=== PATIENT | female | born 1935 | race Caucasian/White ===

== ENCOUNTER 2016-05-11 09:15 | Emergency (ER) | payer MEDICARE ==
[~2016-05-11] VITALS: Ht 167.6 cm; Wt 61.2 kg
[~2016-05-11 09:15] MED LIST: ADVIL200 M1 PO; AMBIEN10 M1 PO; AMBIEN5 MG; ASPIR LOW81 MG PO; ATIVAN; ATIVAN2 MG PO; BENADRYL ALLERG25 M4 PO; CATAPRES0.1 MG PO; CHOLESTEROL MED; CHOLESTEROL1 POW; DOXYCYCLINE HY100 M5 PO; EXCEDRIN EXTRA1 EACH PO; HYDROCODONE BIT1 T11 PO; LISINOPRIL20 MG PO; LISINOPRIL5 MG PO; MEDROL DOSEPAK4 MG PO; NORVASC10 MG PO; OMNICEF300 MG PO; PERCOCET 325 MG1 TA2 PO; PERCOCET 325 MG1 TA6 PO; PLAVIX75 M1 PO; PLAVIX75 MG PO; PRAVASTATIN SOD20 MG PO; PREDNISONE10 MG PO; PREDNISONE20 M1 PO; PROVENTIL0.09 MG/A1 INH; REMERON15 MG PO; TENORMIN50 MG PO; TYLENOL W/CODEI1 TA2 PO; ZITHROMAX Z PA250 MG PO; ZOCOR10 MG PO; ZOCOR20 MG PO; ZOFRAN4 MG PO
[2016-05-11 09:59] LABS: BASO # 0.1 10*3/uL (0.0-0.1); BASO % 0.4 % (0.0-1.0); EOS % 0.2 % (1.0-4.0); HEMATOCRIT 35.7 % (37.0-47.0); HEMOGLOBIN 11.4 g/dl (12.0-16.0); IG # 0.1 10*3/uL (0.0-0.1); LYMPH # 1.8 10*3/uL (1.3-4.4); LYMPH % 8.6 % (27.0-41.0); MEAN CELL VOLUME 96.2 fl (81.0-99.0); MEAN CORPUSCULAR HGB 30.7 pg (27.0-31.0); MEAN CORPUSCULAR HGB CONC 31.9 g/dl (33.0-37.0); MEAN PLATELET VOLUME 11.4 fl (9.6-12.3); MONO # 1.4 10*3/uL (0.1-1.0); MONO % 6.7 % (3.0-9.0); NEUT # 17.2 10*3/uL (2.3-7.9); NEUT % 83.4 % (47.0-73.0); PLATELET COUNT AUTOMATED 273 10*3/uL (130-400); RED BLOOD COUNT 3.71 10*6/uL (4.10-5.10); RED CELL DISTRI WIDTH 14.1 % (0-14.5); WHITE BLOOD COUNT 20.6 10*3/uL (4.8-10.8)
[2016-05-11 10:07] LABS: INTERNATIONAL NORM RATIO 1.1 (2.0-3.5); PROTHROMBIN TIME 11.3 SECONDS (9.0-12.4)
[2016-05-11] MEDS ORDERED: OMEPRAZOLE MAGN20 MG PO (10:15)
[2016-05-11] MEDS ORDERED: DULOXETINE HCL30 MG PO (10:16)
[2016-05-11] MEDS ORDERED: EFFER-K25 MEQ PO (10:16)
[2016-05-11 10:21] LABS: BILIRUBIN NEGATIVE (NEGATIVE); BLOOD NEGATIVE (NEGATIVE); CLARITY CLOUDY (CLEAR); COLOR YELLOW (YELLOW); GLUCOSE NEGATIVE (NEGATIVE); KETONE NEGATIVE (NEGATIVE); LEUKO ESTERASE NEGATIVE (NEGATIVE); NITRITE NEGATIVE (NEGATIVE); PROTEIN NEGATIVE (NEGATIVE); UROBILINOGEN 0.2 E.U./dl (0.2-1.0)
[2016-05-11 10:27] LABS: ALBUMIN 3.6 gm/dl (3.1-4.5); BILIRUBIN, TOTAL 0.4 mg/dl (0.2-1.0); MAGNESIUM 2.6 mg/dL (1.5-2.1); POTASSIUM 3.5 mmol/L (3.5-5.1); TOTAL PROTEIN 7.1 gm/dL (6.4-8.2)
[2016-05-11 10:28] LABS: TROPONIN I 0.016 ng/ml (<0.045)
[2016-05-11 10:37] LABS: EPITHELIAL CELLS 16-20
[2016-05-11 10:38] LABS: BACTERIA 1+; URINE REFLEX COMMENT NO (NO); WBC 0-2 wbc/hpf (0-5)
[2016-05-11 11:03] LABS: ABG CO2 CONTENT 16.8 mmol/L (23-27); ABG HCO3 15.9 mmol/l (22-26); ARTERIAL BLOOD GAS PH 7.322 (7.35-7.45); ARTERIAL BLOOD GAS PO2 80.2 mmHg (80-90)
[2016-05-11 11:04] LABS: ABG BASE EXCESS -8.9 mmol/L (-2.0-2.0)
[2016-05-11 11:55] LABS: LA>2 REFLEX 2 HR DRAW NOW
[2016-05-11 12:12] LABS: LA>2 RFLX FOLLOW UP AT 2 HRS 2.5 mmol/L (0.4-2.0)
[2016-05-11 14:07] LABS: LA>2 REFLEX 4 HR DRAW NOW
== END 2016-05-11 14:20 | disposition short-term general hospital (02) ==
LOC: ED 09:15
PROVIDERS: Registered Nurse
DX: A41.9 Sepsis, unspecified organism (principal); N17.9 Acute kidney failure, unspecified; R09.02 Hypoxemia; R04.89 Hemorrhage from other sites in respiratory passages; K66.1 Hemoperitoneum; F17.200 Nicotine dependence, unspecified, uncomplicated; Z90.710 Acquired absence of both cervix and uterus; Z79.82 Long term (current) use of aspirin; Z88.6 Allergy status to analgesic agent; Z91.041 Radiographic dye allergy status

== ENCOUNTER → 2016-07-09 | Outpatient (CLI) | payer MEDICARE ==
[~2016-07-09] MED LIST changes: +DULOXETINE HCL30 MG PO; +EFFER-K25 MEQ PO; +OMEPRAZOLE MAGN20 MG PO
== END | disposition home or self-care (01) ==
LOC: MRI 07-07 14:00
DX: I65.23 Occlusion and stenosis of bilateral carotid arteries (principal); R93.0 Abnormal findings on diagnostic imaging of skull and head, not elsewhere classified; R29.6 Repeated falls; R55 Syncope and collapse; R51 Headache; R26.9 Unspecified abnormalities of gait and mobility

== ENCOUNTER → 2016-07-22 | Outpatient (CLI) | payer MEDICARE ==
[~2016-07-22] MED LIST changes: +PROTONIX40 MG PO
== END | disposition home or self-care (01) ==
LOC: CP 10:00
DX: R55 Syncope and collapse (principal); R51 Headache; R26.9 Unspecified abnormalities of gait and mobility; R29.6 Repeated falls

== ENCOUNTER 2016-07-24 21:23 | Emergency (ER) | payer MEDICARE ==
[~2016-07-24] VITALS: Ht 162.5 cm; Wt 54.4 kg
[~2016-07-24 21:23] MED LIST changes: -PROTONIX40 MG PO
[2016-07-24] MEDS ORDERED: PROTONIX40 MG PO (21:52)
[2016-07-24 22:36] LABS: BASO # 0.1 10*3/uL (0.0-0.1); BASO % 1.5 % (0.0-1.0); EOS # 0.2 10*3/uL (0.0-0.4); EOS % 3.3 % (1.0-4.0); HEMATOCRIT 42.4 % (37.0-47.0); HEMOGLOBIN 14.1 g/dl (12.0-16.0); LYMPH # 2.2 10*3/uL (1.3-4.4); LYMPH % 29.5 % (27.0-41.0); MEAN CELL VOLUME 95.7 fl (81.0-99.0); MEAN CORPUSCULAR HGB 31.8 pg (27.0-31.0); MEAN CORPUSCULAR HGB CONC 33.3 g/dl (33.0-37.0); MEAN PLATELET VOLUME 11.1 fl (9.6-12.3); MONO # 0.8 10*3/uL (0.1-1.0); MONO % 10.2 % (3.0-9.0); NEUT % 55.2 % (47.0-73.0); PLATELET COUNT AUTOMATED 271 10*3/uL (130-400); RED BLOOD COUNT 4.43 10*6/uL (4.10-5.10); RED CELL DISTRI WIDTH 16.1 % (0-14.5); WHITE BLOOD COUNT 7.3 10*3/uL (4.8-10.8)
[2016-07-24 22:51] LABS: ALBUMIN 3.6 gm/dl (3.1-4.5); BILIRUBIN, TOTAL 0.2 mg/dl (0.2-1.0); TOTAL PROTEIN 7.2 gm/dL (6.4-8.2)
== END 2016-07-24 23:49 | disposition home or self-care (01) ==
LOC: ED 21:23
PROVIDERS: Emergency Medicine
DX: R42 Dizziness and giddiness (principal); F17.200 Nicotine dependence, unspecified, uncomplicated; Z88.8 Allergy status to other drugs, medicaments and biological substances; Z91.041 Radiographic dye allergy status; Z79.899 Other long term (current) drug therapy

== ENCOUNTER → 2016-07-24 | Outpatient (CLI) | payer MEDICARE | END | disposition home or self-care (01) | LOC: CARD 10:00 | DX: J44.9 Chronic obstructive pulmonary disease, unspecified (principal); N28.1 Cyst of kidney, acquired; K66.1 Hemoperitoneum; N26.1 Atrophy of kidney (terminal); I70.0 Atherosclerosis of aorta; Z87.891 Personal history of nicotine dependence; Z95.5 Presence of coronary angioplasty implant and graft ==

== ENCOUNTER 2016-12-19 10:33 | Inpatient (IN) | payer MEDICARE ==
[~2016-12-19] VITALS: Ht 163 cm; Wt 47.0 kg
--- NOTE | ~2016-12-19 | PR ---
[place], [place] PROGRESS NOTE NAME: LEA GRANT UNIT #: [id number] ROOM: 426 DOCTOR: TROY MOBLEY MD BIRTHDATE: [birth year] DOS: 12/21/2016 SUBJECTIVE: The patient has pain at the left clavicular fracture site, waiting for transfer to detention facility. PHYSICAL EXAMINATION: GENERAL APPEARANCE: The patient is alert and oriented x 3, in no visible distress. VITAL SIGNS: Blood pressure 150/67, heart rate of 73 beats per minute, breathing 20 times per minute, temperature 98 degrees Fahrenheit. HEENT AND NECK: Exam within normal limits. CARDIOVASCULAR SYSTEM: Heart rate is regular in rate and rhythm. S1 and S2 normally audible. LUNGS: Clear to auscultation. ABDOMEN: Soft, nontender. No obvious organomegaly. Bowel sounds are present. EXTREMITIES: Without significant cyanosis or edema. MUSCULOSKELETAL: Tenderness at the left shoulder. IMPRESSION: 1. The patient with resistant urinary tract infection with E. coli, to be treated with ceftriaxone. 2. Benign essential hypertension with elevated blood pressures. I will increase the amlodipine to 10 mg daily. 3. Chronic constipation, treated and controlled with sennoside. 4. Mixed hyperlipidemia, treated and controlled with Lipitor. TROY MOBLEY MD CM:PNTRANS [id number] TROY MOBLEY MD 12/24/16 0836 interface
--- NOTE | ~2016-12-19 | EKG ---
[place], [place] ELECTROCARDIOGRAM REPORT NAME: LEA GRANT UNIT #: [id number] ROOM: 426 DOCTOR: FARRUKH ROJO,TATE BIRTHDATE: [birth year] DOS: 12/19/2016 TIME: 11:27 a.m. IMPRESSION: 1. Sinus rhythm. 2. First degree AV block. 3. LV hypertrophy. 4. 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 5. Possible old inferior infarction. TATE CHADWICK MD CM:EKGRPT:ELECTROCARDIOGRAM REPORT [id number] TATE CHADWICK MD
--- NOTE | ~2016-12-19 | DS ---
[place], [place] DISCHARGE SUMMARY NAME: LEA GRANT UNIT #: [id number] ROOM: 426 DOCTOR: TROY MOBLEY MD BIRTHDATE: [birth year] DOS: 12/23/2016 DISCHARGE DIAGNOSES: 1. 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 2. Distal left clavicular fracture with pain, evaluated by Dr. Sr. 3. Chronic constipation, treated and controlled. 4. Benign essential hypertension, blood pressure being monitored and treated. 5. Pre-diabetic. 6. Moderate protein calorie malnutrition. 7. Nicotine smoke dependence. 8. Adult failure to thrive. HOSPITAL COURSE: The patient refuses to use walker and has recurrent falls and injuries at home, this time broke her left clavicle. She had a distal left clavicular fracture and earlier on she had left radius Colles fracture. The patient was started on physical therapy and was seen by orthopedic surgeon, Dr. Sr. The patient was insisting on going home, but somehow I was able to convince her to go to a residential facility for rehab because she is a very high risk for falls, especially now after left clavicular fracture. The patient is to follow up with Dr. Sr as an outpatient and Dr. Sr will also recommend physical therapy. Depressed fracture of the distal one third of the left clavicle. Benign essential hypertension, with blood pressures better controlled now with adjustment of her treatment. Moderate protein calorie malnutrition and adult failure to thrive. Pre-diabetic, blood sugars were monitored and are reasonably controlled. LABORATORY DATA: X-ray of the clavicle as mentioned above. Urinary tract infection with E. coli, treated with IV Rocephin, normal serum electrolytes. Hemoglobin 11.2, otherwise normal CBC, platelets were normal. CT scan of the head did not show any acute abnormality ____ CT of the cervical spine. DISCHARGE MANAGEMENT: MiraLax 17 grams b.i.d., amlodipine 10 mg a day, atorvastatin 10 mg a day, sennoside b.i.d. 8.6 mg, Plavix 75 mg a day, aspirin 81 mg a day, omeprazole 20 mg a day, Singulair 10 mg a day, Colace 200 mg at bedtime, lisinopril 10 mg a day, IV ceftriaxone to complete 1 week of treatment, then to discontinue. [place], [place] DISCHARGE SUMMARY NAME: LEA GRANT UNIT #: [id number] ROOM: 426 DOCTOR: LEANDRA ROJO,TROY Buenrostro BIRTHDATE: [birth year] TROY MOBLEY MD CM:DISCHARG [phone] TROY MOBLEY MD 12/23/16 1213 interface
--- NOTE | ~2016-12-19 | PR ---
[place], [place] PROGRESS NOTE NAME: LEA GRANT UNIT #: [id number] ROOM: 426 DOCTOR: TROY MOBLEY MD BIRTHDATE: [birth year] DOS: 12/20/2016 SUBJECTIVE: The patient is feeling much better, some pain where she has left ventricular fracture. OBJECTIVE: VITAL SIGNS: Blood pressure 114/57, heart rate 81 beats per minute, breathing 20 times per minute, temperature 98.2 degrees Fahrenheit. GENERAL APPEARANCE: The patient is alert and oriented x 3, in no visible distress. HEENT AND NECK: Exam within normal limits. CARDIOVASCULAR SYSTEM: Heart rate is regular in rate and rhythm. S1 and S2 normally audible. LUNGS: Clear to auscultation. ABDOMEN: Soft, nontender. No obvious organomegaly. Bowel sounds are present. EXTREMITIES: Without significant cyanosis or edema. IMPRESSION: 1. The patient with left distal clavicular fracture from a fall with significant pain which are reasonably controlled, now to be seen by Dr. Sr, the orthopedic surgeon tomorrow. 2. Urinary tract infection with urine cultures. Final results are still pending. The patient is growing heavy gram-negative bacilli. No leukocytosis. I will treat her with Bactrim-DS. 3. Nicotine smoke dependence. The patient encouraged to stop smoking cigarettes. 4. Recurrent falls and adult failure to thrive. The patient to work with physical therapy. 5. Moderate protein-calorie malnutrition. The patient working with dietary. TROY MOBLEY MD CM:PNTRANS [phone] TROY MOBLEY MD 12/21/16 0108 interface
--- NOTE | ~2016-12-19 | PR ---
[place], [place] PROGRESS NOTE NAME: LEA GRANT UNIT #: [id number] ROOM: 426 DOCTOR: TROY MOBLEY MD BIRTHDATE: [birth year] DOS: 12/22/2016 SUBJECTIVE: The patient refused to go to [facility] when she was approached by socially responsible investment adviser. OBJECTIVE: VITAL SIGNS: Blood pressure 140/60, heart rate of 76 beats per minute, breathing 18 times per minute, temperature 98 degrees Fahrenheit. GENERAL APPEARANCE: The patient is alert and oriented x 3, in no visible distress. HEENT AND NECK: Exam within normal limits. CARDIOVASCULAR SYSTEM: Heart rate is regular in rate and rhythm. S1 and S2 normally audible. LUNGS: Clear to auscultation. ABDOMEN: Soft, nontender. No obvious organomegaly. Bowel sounds are present. EXTREMITIES: Without significant cyanosis or edema. IMPRESSION: Distal left clavicular fracture with pain, improving with treatment. The patient requires further physical therapy to prevent falls at home and finally she is agreeing to go to [facility] and socially responsible investment adviser have been informed again. 1. Adult failure to thrive and recurrent falls and injuries. 2. Benign essential hypertension with better controlled blood pressures with treatment now. 3. Chronic constipation, treated and controlled, but with the pain treatment, she requires a little more laxative, so she is being given MiraLax. TROY MOBLEY MD CM:PNTRANS [phone] TROY MOBLEY MD 12/22/166 interface
--- NOTE | ~2016-12-19 | WRIGHTHP ---
[place], [place] PATIENT HISTORY AND PHYSICAL EXAM [id number] UN[facility] #: [id number] ROOM: 426 DOCTOR: TROY MOBLEY MD BIRTHDATE: [birth year] DOS: 12/19/2016 HISTORY OF PRESENT ILLNESS: The patient is an 81-year-old female with a past medical history of; 1. Nicotine smoke dependence, adult failure to thrive, and recurrent falls. The patient refuses to use a walker, previous left radius Colles fracture. 2. Benign essential hypertension. 3. Moderate protein-calorie malnutrition. 4. Prediabetic. The patient presented to the Emergency Department at [facility] after she fell while she was trying to turn and lost her balance. The patient was found to have depressed fracture of the lateral third of the left clavicle and she had severe pain. The patient was recommended for admission and further management because she is already unable to ambulate well by herself and with added fracture and pain and more disability, she will not be able to ambulate at home. The patient was given pain medication in the ER and she is in a deep sleep. The patient normally lives at home with the help of her daughter and refuses to use a wheeled walker and has recurrent falls. No recent chest pain, shortness of breath. No GI or urinary symptoms. REVIEW OF SYSTEMS: GASTROINTESTINAL: No nausea, vomiting, diarrhea, constipation. LUNGS: No increasing shortness of breath or wheezing. CARDIOVASCULAR: No chest pains or palpitations. ALLERGIES: Known allergies to IODINE, TAPE, and HYDROCODONE. SOCIAL HISTORY: Denies any alcohol or drug abuse. The patient continues to smoke cigarettes. FAMILY HISTORY: Noncontributory. PHYSICAL EXAMINATION: GENERAL: The patient is deeply sedated with pain medications, difficult to arouse, but before that she was alert and oriented. Generalized weakness and tenderness at the distal lateral third of the left clavicle. HEENT AND NECK: Extraocular movements are intact. Sclerae are anicteric. Oral mucosa is moist and clean. No obvious facial weakness. Neck is supple without any lymphadenopathy. No thyromegaly. No JVD. No carotid arterial bruits. LUNGS: Clear to auscultation. No wheezing. No rhonchi. CARDIOVASCULAR SYSTEM: Heart rate is regular in rate and rhythm. S1 and S2 normally audible. No significant murmur or any other abnormal cardiac sounds. ABDOMEN: Soft, nontender. No obvious organomegaly. Bowel sounds are present. No obvious herniation. EXTREMITIES: Without significant cyanosis or edema. Warm to touch. CENTRAL NERVOUS SYSTEM: ____. Cranial nerves II-XII are intact. Speech is normal. The patient is able to move all extremities. Normal muscle strength. Deep tendon reflexes are equal on both sides. Plantars were downgoing. [place], [place] PATIENT HISTORY AND PHYSICAL EXAM NAME: LEA GRANT UNIT #: [id number] ROOM: 426 DOCTOR: TROY MOBLEY MD BIRTHDATE: [birth year] LABORATORY DATA: X-ray of the neck without any acute abnormality. CT of the head without acute abnormality except for an old left anterolateral scalp contusion, which family says happened earlier when she fell and hit her head sometime back. BUN and creatinine 21 and 1.4. Hemoglobin 11.5. IMPRESSION AND PLAN: 1. The patient with depressed fracture of the distal one third of the left clavicle with severe pain and the patient unable to ambulate at home. The patient was already having recurrent falls at home prior to this injury and has limited function. The patient also does not cooperate with using walker and is at high risk for falls. The patient is being admitted, to be followed by Dr. Sr, the orthopedic surgeon. 2. Benign essential hypertension. Monitor blood pressures and treat accordingly. 3. Moderate protein-calorie malnutrition. The patient to work with dietary. 4. Chronic obstructive pulmonary disease and chronic respiratory failure with continued nicotine dependence, to be treated with bronchodilators. 5. Nicotine smoke dependence. The patient to be encouraged to stop smoking cigarettes. TROY MOBLEY MD CM:HISPHYS:PATIENT HISTORY AND PHYSICAL EXAMINATION 1604 [id number] TROY MOBLEY MD 12/21/16 1113 interface
[~2016-12-19 10:33] MED LIST changes: +PROTONIX40 MG PO
[2016-12-19 10:49] VITALS: BP 183/74
[2016-12-19 11:20] LABS: BASO # 0.1 10*3/uL (0.0-0.1); BASO % 0.7 % (0.0-1.0); EOS # 0.5 10*3/uL (0.0-0.4); EOS % 5.6 % (1.0-4.0); HEMATOCRIT 35.6 % (37.0-47.0); HEMOGLOBIN 11.5 g/dl (12.0-16.0); LYMPH # 1.5 10*3/uL (1.3-4.4); LYMPH % 17.5 % (27.0-41.0); MEAN CELL VOLUME 100.3 fl (81.0-99.0); MEAN CORPUSCULAR HGB 32.4 pg (27.0-31.0); MEAN CORPUSCULAR HGB CONC 32.3 g/dl (33.0-37.0); MEAN PLATELET VOLUME 11.7 fl (9.6-12.3); MONO # 0.6 10*3/uL (0.1-1.0); MONO % 6.7 % (3.0-9.0); NEUT % 69.3 % (47.0-73.0); PLATELET COUNT AUTOMATED 187 10*3/uL (130-400); RED BLOOD COUNT 3.55 10*6/uL (4.10-5.10); RED CELL DISTRI WIDTH 13.4 % (0-14.5); WHITE BLOOD COUNT 8.6 10*3/uL (4.8-10.8)
[2016-12-19 11:29] LABS: ACT PARTIAL THROMBO TIME 22.7 SECONDS (20.8-31.5)
[2016-12-19 11:46] LABS: ALBUMIN 3.5 gm/dl (3.1-4.5); CREATININE 1.43 mg/dL (0.55-1.02); POTASSIUM 3.6 mmol/L (3.5-5.1); TOTAL PROTEIN 6.9 gm/dL (6.4-8.2)
[2016-12-19 11:47] LABS: TROPONIN I 0.021 ng/ml (<0.045)
--- NOTE | 2016-12-19 11:58 | NUR ---
PAIN MEDICATION EFFECTIVE PER PT FAMILY IN ROOM PT TO CT NO DISTRESS NOTED
[2016-12-19 12:51] VITALS: BP 168/80
--- NOTE | 2016-12-19 12:51 | NUR ---
PT HAS NOT HAD HER BP MEDS THIS MORNING PER FAIMLY
--- NOTE | 2016-12-19 14:10 | NUR ---
TISSUE TEAR TO LEFT PINKY AND 2 SITE TO LEFT FOREARM RE: TO FALL. VERSATILE NOT AVAILABLE AND NOT APPLIED TO SITES X 3.
[2016-12-19 14:43] VITALS: BP 184/88
[2016-12-19 14:50] VITALS: BP 184/88
[2016-12-19] MEDS ORDERED: LISINOPRIL10 M1 PO (15:49)
[2016-12-19] MEDS ORDERED: AMITRIPTYLINE25 MG PO (15:52)
[2016-12-19] MEDS ORDERED: DOCUSATE SODIU100 M2 PO (15:52)
[2016-12-19] MEDS ORDERED: LIPITOR10 MG PO (15:53)
[2016-12-19] MEDS ORDERED: SINGULAIR10 M1 PO (15:55)
[2016-12-19] MEDS ORDERED: SENNA8.6 MG PO (15:55)
--- NOTE | 2016-12-19 15:55 | NUR ---
DR. TRAMMELL NOTIFIED OF CONSULT, IS OUT OF TOWN UNTIL WEDNESDAY, OBTAINED ORDERS FOR PHYSICAL THERAPY FOR AMBULATION W/ASSISTIVE DEVICE, NON-WEIGHT BEARING TO LEFT UPPER EXTREMITY.
[2016-12-19] MEDS ORDERED: OMEPRAZOLE D/R20 MG PO (16:01)
--- NOTE | 2016-12-19 16:05 | NUR ---
MED REC UPDATED PER PERSONAL HOME MED LIST.
--- NOTE | 2016-12-19 16:12 | NUR ---
Time: 1449 A 86 year old FEMALE admitted to under services of DR. LEANDRA ROJO,TROY Bagley Pt. arrived via stretcher from ER. Chief complaint: INTRACTABLE PAIN DUE TO LEFT CLAVICLE FRACTURE. JD PHILLIPS
[2016-12-19 17:56] LABS: BILIRUBIN NEGATIVE (NEGATIVE); BLOOD TRACE-INTACT (NEGATIVE); CLARITY SL CLOUDY (CLEAR); COLOR YELLOW (YELLOW); GLUCOSE NEGATIVE (NEGATIVE); KETONE NEGATIVE (NEGATIVE); LEUKO ESTERASE 1+ (NEGATIVE); NITRITE POSITIVE (NEGATIVE); UROBILINOGEN 0.2 E.U./dl (0.2-1.0)
[2016-12-19 18:07] LABS: BACTERIA 2+; WBC 31-40 wbc/hpf (0-5)
--- NOTE | 2016-12-19 19:43 | NUR ---
PT. IS CURRENTLY SLEEPING AT THIS PRESENT MOMENT. UPON AROUSAL PT. IS PLEASANT AND COOPERATIVE. HOB IS ELEVATED, WHEELS LOCKED, BED LOW, ALARM ON, AND CALL LIGHT WITHIN REACH. PT. DOES NOT EXPRESS ANY CONCERNS AND NO DISTRESS IS NOTED, PT. IS CURRENTLY WEARING SLING TO LT. UPPER EXTREMITY. SEE SHIFT ASSESSMENT.
[2016-12-20] VITALS: BP 163/72
--- NOTE | 2016-12-20 00:56 | NUR ---
PATIENT RESTING IN BED WITH EYES CLOSED. NO SIGNS OR SYMPTOMS OF DISTRESS NOTED AROUSES TO VERBAL STIMULI. WILL CONTINUE TO MONITOR. CALL LIGHT IN REACH.
[2016-12-20 06:31] LABS: BASO # 0.1 10*3/uL (0.0-0.1); BASO % 0.8 % (0.0-1.0); EOS # 0.3 10*3/uL (0.0-0.4); EOS % 4.5 % (1.0-4.0); HEMATOCRIT 34.7 % (37.0-47.0); HEMOGLOBIN 11.2 g/dl (12.0-16.0); LYMPH # 1.7 10*3/uL (1.3-4.4); LYMPH % 23.6 % (27.0-41.0); MEAN CELL VOLUME 99.4 fl (81.0-99.0); MEAN CORPUSCULAR HGB 32.1 pg (27.0-31.0); MEAN CORPUSCULAR HGB CONC 32.3 g/dl (33.0-37.0); MEAN PLATELET VOLUME 12.1 fl (9.6-12.3); MONO # 0.7 10*3/uL (0.1-1.0); MONO % 9.7 % (3.0-9.0); NEUT # 4.5 10*3/uL (2.3-7.9); NEUT % 61.3 % (47.0-73.0); PLATELET COUNT AUTOMATED 186 10*3/uL (130-400); RED BLOOD COUNT 3.49 10*6/uL (4.10-5.10); RED CELL DISTRI WIDTH 13.4 % (0-14.5); WHITE BLOOD COUNT 7.3 10*3/uL (4.8-10.8)
[2016-12-20 06:57] LABS: CREATININE 1.13 mg/dL (0.55-1.02); POTASSIUM 3.8 mmol/L (3.5-5.1)
[2016-12-20 08:00] VITALS: BP 163/72
--- NOTE | 2016-12-20 08:50 | NUR ---
PATIENT RESTING IN BED NO COM AT THIS TIME CALL LIGHT IN REACH. SEE SHIFT ASSESSMENT
[2016-12-20 16:00] VITALS: BP 114/57; BP 163/72
--- NOTE | 2016-12-20 16:44 | NUR ---
PATIENT RESTING IN BED FAMILY IN ROOM NO CO AT THIS TIME
--- NOTE | 2016-12-20 22:58 | NUR ---
RESTING IN BED WITH EYES CLOSED. NO SIGNS OR SYMPTOMS OF DISTRESS NOTED. WILL CONTINUE TO MONITOR. CALL LIGHT IN REACH.
[2016-12-21] VITALS: BP 150/67
[2016-12-21 08:00] VITALS: BP 174/66
--- NOTE | 2016-12-21 08:00 | NUR ---
SITTING UP IN CHAIR, NO C/O NO DISTRESS NOTED. SLING INTACT TO LEFT ARM. STATES PAIN IN SHOULDER WITH MOVEMENT OF ARM. SEE SHIFT ASSESSMENT.
--- NOTE | 2016-12-21 08:59 | NUR ---
Recieved order for snf from Dr. Guaman. In to see patient. She states she is independent, has a walker and cane but doesn't use them. PCP was Dr. Toney but she thinks it is now Dr. Garcia. Uses [facility]. Stated she went to stand up out of bed, got dizzy and fell backwards breaking her clavical. Dr. Sr is supposed to come in and see her today. She is refusing snf. States her son and daughter in law lives with her and take care of all her needs. She is also current with [facility] 3 days per week and would like to go home and resume home health upon discharge.
--- NOTE | 2016-12-21 10:27 | NUR ---
PT AND OT ARE WORKING WITH PT.
--- NOTE | 2016-12-21 11:59 | NUR ---
PHYSICAL THERAPY PAtient evaluated on 4, full evalaution to follow. Continue wth PT as per plan of care with fall, recent fall at home with resultant left clavical fracture: NWB LEFT UE and sling and acute debility precautions. Qualifies for SNF, question if patient will agree. If refuses SNF will require 24 hour family assist and complete home health services. PAtient is high complexity via chart review, tests and evaluation: 38846. Thank you for this referral. Hailey Jain,PT
--- NOTE | 2016-12-21 13:06 | NUR ---
PHYSICAL THERAPY Susana seen this PM 1:1 for her physical therapy session. Pt having a left clavical fracture and has a sling on and is NWB left UE and did well with this. Transfer supine/sit MOD A X 1, with pain. Sitting balance once up supervision X 1. Sit/stand and standing balance MIN A X 1. Followed by gait total 100' X 1, with MOD NURSE PRACTITIONER ADULT X 1, and verbal cueing for gait, turn safety with no LOB this visit, back supine in bed to rest, Pt with call light and i put her bed alarm on. THEODORA GONZALEZ RADIATOR CLEANER.
--- NOTE | 2016-12-21 13:15 | NUR ---
LEA GRANT [id number] Please refer to the physician's history and physical for past medical history, comorbid conditions, and allergies. Diagnosis: INTRACTABLE PAIN, CLAVICLE FRACTURE Rayshawn Score: 13,MODERATE RISK WOUND DESCRIPTIONS: Location of the wound: left 5th finger Type of wound: skin tear Thickness: Partial Size: 1.0cm x 0.8cm x 0.1cm Tunneling: none Undermining: none Sinus Tract: none Presence of Exudate: Sanguineous Amount: Light Color: Red Odor: None Periwound Skin Appearance: Normal Wound edges: approximated Pain (associated with wound): none at time of assessment How does patient state this happened? pt stated she fell down Location of the wound: left forearm distal Type of wound: skin tear Thickness: Partial Size: 0.1cm x 0.5cm x 0.1cm Tunneling: none Undermining: none Sinus Tract: none Presence of Exudate: Serosanguineous Amount: Light Color: Red Odor: None Periwound Skin Appearance: Normal Wound edges: approximated Pain (associated with wound): none at time of assessment How does patient state this happened? pt stated she fell Location of the wound: left forearm proximal Type of wound: skin tear Thickness: Partial Size: 1.5cm x 1.5cm x 0.1cm Tunneling: none Undermining: none Sinus Tract: none Presence of Exudate: Serosanguineous Amount: Light Color: Red Odor: None Periwound Skin Appearance: Normal Wound edges: approximated Pain (associated with wound): none at time of assessment How does patient state this happened? pt stated she fell down Location of the wound: left palm hand Type of wound: skin tear Thickness: Partial Size: 0.2cm x 0.7cm x 0.1cm Tunneling: none Undermining: none Sinus Tract: none Presence of Exudate: Serosanguineous Amount: Light Color: Red Odor: None Periwound Skin Appearance: Normal Wound edges: approximated Pain (associated with wound): none at time of assessment How does patient state this happened? pt stated she fell Patient has two intact scab to right top of her hand where her dog scratch her they measure 0.3cm x 0.5cm x <0.1cm and 0.2cm x 0.5cm x <0.1cm no drainage noted no redness noted. Surface the patient is resting on: Position Pro SKIN PREVENTION RECOMMENDATION: 1. Pressure redistribution support surface as appropriate 2. Elevate heels 3. Remove boots/TEDS every shift and reapply 4. Head of bed 30 degrees as tolerated 5. Assess nutrition and hydration 6. Manage moisture 7. Avoid the use of containment devices while in bed 8. Use absorptive products on surfaces limit layers of linens on bed 9. Turn and reposition every 1-2 hours in bed and every 1 hour in chair as tolerated 10. Weight shifts every 15 minutes while up in chair 11. Offloading with pillows or device to keep heels elevated off bed 12. Monitor skin at least every shift 13. Inspect under medical devices twice a day WOUND TREATMENT RECOMMENDATIONS: Cleanse left 5th finger, left forearm distal,left forearm proximal and left palm of hand with nss and apply sureprep to around the wound then apply adaptic then cover with rolled gauze. No tape to skin only to dressing inself.
--- NOTE | 2016-12-21 15:04 | NUR ---
Occupational Therapy evaluation completed this date on 4 with full eval to follow. Precautions include fall risk h/o falls, NWB LuE, sling use LUE, contusions left shoulder area with pain, impaired balance, ADLs and safety, high complexity level 33972. Recommend OT per POC and SNF upon d/c to enable return home at [facility]. Thank you for this referral. Zahira Willard OTR/l
--- NOTE | 2016-12-21 15:17 | NUR ---
Nutritional Support Services Note: Pt triggered for wounds. Noted skin tear after fall and dog scratch. No wounds at this time. Fx clavicle noted. Pt is eating 100% of meals. Discussed need for apporpriate calories and protein to promote healing. Pt states she eats good. No other nutrition intervention needed at this time. Will follow as needed. Marilou Alvarez
--- NOTE | 2016-12-21 15:26 | NUR ---
PATIENT IN BED AND REPORTS FEELING TIRED AND REQUESTED TO START THERAPY TOMORROW. BUSHRA WRIGHT/Demetris
[2016-12-21 16:00] VITALS: BP 150/48
--- NOTE | 2016-12-21 20:00 | NUR ---
PT LYING IN BED, AWAKE ALERT AND ORIENTED. ASSESSMENT COMPLETE, LUNGS DIMINISHED, NORMOACTIVE BOWEL SOUNDS, AND HRR, 80 BPM. NO COMPLAINTS OF PAIN AT THIS TIME. SLING IN PLACE TO LEFT ARM. IV CATHETER PATENT, DRESSING DRY AND IN TACT, HEPLOCKED AT THIS TIME. NO S/S OF DISTRESS. RESPIRATIONS EASY. CALL LIGHT IN REACH.
[2016-12-22] VITALS: BP 145/57
--- NOTE | 2016-12-22 02:26 | NUR ---
24 HR chart check completed
--- NOTE | 2016-12-22 06:00 | NUR ---
PT RESTING IN BED, RESPIRATIONS EASY AND UNLABORED. EASILY AROUSED. NO S/S OF DISTRESS. NO COMPLAINTS VOICED AT THIS TIME. IV SITE PATENT, DRESSING DRY AND IN TACT. ALL NEEDS CURRENTLY MET, CALL LIGHT IN REACH.
[2016-12-22 08:00] VITALS: BP 140/62
--- NOTE | 2016-12-22 08:00 | NUR ---
PATIENT SITTING COMFORTABLY IN BED. [facility] KRAMER [facility]
--- NOTE | 2016-12-22 10:00 | NUR ---
PT SITTING IN CHAIR WATCHING TV REPORTS NO PAIN. SALENA KRAMER SPNRCC
--- NOTE | 2016-12-22 10:17 | NUR ---
PHYSICAL THERAPY Mrs Murrell was seen this AM 1:1 for her physical therapy session. Pt looking and sounding better today. With sling on left LE and is NWB doing well with this. Transfer supine/sit MOD A X 1, sitting balance once up supervision X 1, X 5 min no LOB. Sit/stand and standing balance MIN A X 1. Followed by gait 125' X 1, MIN/MOD REFERENCE LIBRARIAN X 1, and verbal cueing for gait safety. Start off with short choppy steps into normal stride and is improving. Pt up in her bedside chair, call light and family in. THEODORA GONZALEZ PTA.
--- NOTE | 2016-12-22 10:59 | NUR ---
PATIENT SEEN 1:1 OT 25 MINUTES THIS DATE. PATIENT IDENTIFIED BY NAME AND DATE OF . PATIENT DAUGHTER PRESENT THROUGHOUT SESSION THIS DATE. PATIENT COMPLETED SIT TO STAND FROM RECLINER MIN A AND COMPLETED FUNCTIONAL AMBULATION TO BED MOD A WITH INSTABILTY NOTE HAND HELD. PATIENT COMPLETED FUNCTIONAL AMBULATION MOD A BED TO RECLINER WITH MOD VERBAL CUE SAFETY. PATIENT REPORTS NO DIZZINESS. PATIENT DEMONSTRATED STAND TOLERANCE APPROX 1 MINUTE THIS DATE. PATIENT COMPLETED LUE AROM WRIST AND HAND ONLY INLCUDED PINCER, THUMB OPPOSITION, HAND FLEX/EXT, WRIST FLEX/EXT, AND DIGIT ABD/ADD X 10 REPS. PATIENT C/O NO PAIN. COMPLETED RUE AROM SHOULDER FLEX/EXT, ELBOW FLEX/EXT, SHOULDER HORIZONTAL ABD/ADD, FOREARM SUPINATION/PRONATION X 15 REPS SEATED WITH MOD VERBAL CUES TECH/FORM. BUSHRA WRIGHT/Demetris
--- NOTE | 2016-12-22 12:00 | NUR ---
PT IS RESTING EASING, NO PAIN NOTED. SALENA KRAMER SPNRCC
--- NOTE | 2016-12-22 13:19 | NUR ---
PHYSICAL THERAPY Mrs Toney seen this PM 1:1 for her physical therapy session, family present. Susana ask if i could come back tomorrow and did not want any PM therapy. THEODORA GONZALEZ FLARE MAN.
[2016-12-22 16:00] VITALS: BP 147/60
--- NOTE | 2016-12-22 18:19 | NUR ---
PT IN BED, WATCHING TV. TOLERATED MEDICATION ADMIN WELL. NO COMPLAINTS AT THIS TIME.
[2016-12-22 20:00] VITALS: BP 131/64; BP 169/70
[2016-12-23] VITALS: BP 142/87
[2016-12-23 08:00] VITALS: BP 120/78
--- NOTE | 2016-12-23 08:36 | NUR ---
OCCUPATIONAL THERAPY CO-SIGN I approve of the Occupational Therapy notes written above. ALEYDA YEUNG OTR/Demetris
--- NOTE | 2016-12-23 08:43 | NUR ---
PHYSICAL THERAPY Susana seen this AM 1:1 for her therapy session, nurse present with medication. With verbal cueing transfer supine/sit MOD A X 1, up into sitting then Susana not wanting to get up at this time and forcing herself back supine. Will stop back later this AM. THEODORA GONZALEZ FIELD SERVICER.
--- NOTE | 2016-12-23 09:26 | NUR ---
SW SPOKE WITH PT ABOUT SNF REFERRAL. PT WANTED TO GO TO [place] [facility]. PT WAS CONFUSED. THERE ARE NO FACILITIES IN [place] ANYMORE. SW WILL CONTACT FAMILY FOR WHICH FACILTY THEY PREFER.
--- NOTE | 2016-12-23 09:28 | NUR ---
SW SPOKE WITH DTR MARCUS. MARCUS SAID PT IS CONFUSED AND WAS AT [facility] BEFORE AND THINKS THIS FACILITY IS IN [place]. SW WILL MAKE REFERRAL TO [facility].
--- NOTE | 2016-12-23 10:17 | NUR ---
PHYSICAL THERAPY Back this AM to see Susana and doing much better later in the day. Pt was up in her bedside chair. Transfer sit/stand and up on her third try with CGA X 1. Followed by gait total 145' X 1, CGA X 1, verbal cueing for gait balance safety and turns with no LOB this visit. Pt back up in her bedside chair with body alarm on. THEODORA GONZALEZ BRANCH ACCOUNT EXECUTIVE.
--- NOTE | 2016-12-23 11:19 | NUR ---
SW WAS NOTIFIED BY FILING WRITER THAT PT WAS DISCHARGED. SW INFORMED THAT PT WAS ACCEPTED AT [facility] AND WOULD BE OK TO GO. TIMED REQUESTED 12:30PM.
--- NOTE | 2016-12-23 11:21 | NUR ---
SW SET TRANSPORATION FOR PT WITH [employer] FOR 12:30PM DIRECTOR OF DIGITAL TECHNOLOGY TO GO TO [facility].
--- NOTE | 2016-12-23 11:24 | NUR ---
EMMA NOTIFIED DTR MARCUS THAT PT WAS BEING TRNASFERRED TO [facility] AT 12:30PM.
--- NOTE | 2016-12-23 11:29 | NUR ---
EMMA NOTIFIED WATCH CASER THAT [facility] WAS PICKING UP PT AT 12:30PM TO GO TO [facility].
--- NOTE | 2016-12-23 11:30 | NUR ---
EMMA NOTIFIED TERRANCE WEINBERG THAT [employer] WAS PICKING UP PT AT 12:30PM.
--- NOTE | 2016-12-23 11:59 | NUR ---
TERRANCE WEINBERG NOTIFIED SW THAT PRE-CERT IS NOT BACK ON PT. DISCHARGED PLACED ON HOLD UNTIL PRE-CERT IS BACK. SW NOTIFIED HOBBIES AND CRAFTS SALES REPRESENTATIVE, DTR MARCUS, AND HESHAM THAT DISCHARGE IS ON HOLD UNTIL PRE-CERT IS BACK.
[2016-12-23 12:00] VITALS: BP 137/62
--- NOTE | 2016-12-23 12:58 | NUR ---
PHYSICAL THERAPY Susana seen this PM 1:1 and was supine in bed sleeping. Transfer supine/sit MOD A X 1, sitting balance CGA X 1, X 4 min. Sit/stand and standing balance MOD A X 1, with verbal cues to lean forward for her standing balance. Susana would stand with MOD A X 1, then having LOB and sitting back on the bed X 3 before she's able to stand and step away from her bed with MIN A X 1. Gait total 170' X 1, CGA X 1, and verbal cueing for gait, balance safety. Pt back supine in bed, call light, bed alarm on and was sleeping before i left the room. THEODORA GONZALEZ HAZMAT CDL DRIVER.
[2016-12-23 16:00] VITALS: BP 117/55
[2016-12-23 20:00] VITALS: BP 153/65
[2016-12-24] VITALS: BP 155/79
[2016-12-24 08:00] VITALS: BP 138/78
--- NOTE | 2016-12-24 08:00 | NUR ---
PT RESTING COMFORTABLY IN BED, CALL LIGHT IN REACH, PT WAS SLEEPY AND RELUCTANT TO ORDER BREAKFAST. BREAKFAST WAS ORDERED AND WILL BE OFFERED. PT DENIES PAIN AND HAS NO COMPLAINTS. MIRZA JACK LORRAINECC
--- NOTE | 2016-12-24 10:00 | NUR ---
PT SITTING UP IN CHAIR. PT DRESSINGS CHANGED TO LEFT ARM PT TOLERATED WELL. MIRZA JACK SPCC
--- NOTE | 2016-12-24 10:32 | NUR ---
SW WAS NOTIFIED BY [facility] Mary CARLOS THAT PRE-CERT WAS APRROVED AND PT ABLE TO COME TO FACILITY.
--- NOTE | 2016-12-24 10:33 | NUR ---
EMMA SPOKE WTH DTR MARCUS AND SHE'LL TRANSPORT PT TO [facility]. MARCUS WILL LOCK TENDER PT BETWEEN 1 - 1:30PM TODAY.
--- NOTE | 2016-12-24 10:35 | NUR ---
EMMA NOTIFIED RESEARCH RECRUITER RICHELLE THAT PT'S PRE-CERT WAS BACK AND DTR MARCUS WILL PICKUP PT BETWEEN 1-1:30PM.
--- NOTE | 2016-12-24 10:37 | NUR ---
[facility] THAT DTR WILL OYSTER BED WORKER PT BETWEEN 1-1:30PM.
--- NOTE | 2016-12-24 11:08 | NUR ---
PHYSICAL THERAPY Susana was seen this AM 1:1 for her therapy session, Pt supine in bed with new sling on that Pt's daughter brought in. Transfer supine/sit MOD A X 1, sitting balance X 4 min supervision x 1. Sit/stand and standing balance with Susana not holding her balance and sitting back on her bed X 4 standing balance with cues to lean forward. Then again sit/stand MIN A X 1, then gait just 80' today and wanting to quit with 3 LOB with this 80' gait. Pt just not herself today. Pt up in her bedside chair body alarm on. THEODORA GONZALEZ LINE THERAPIST.
[2016-12-24 12:00] VITALS: BP 119/51
--- NOTE | 2016-12-24 12:00 | NUR ---
PT RESTING COMFORTABLY IN CHAIR. PT DENIES PAIN AND HAS NO COMPLAINTS AT THIS TIME. PT VERY COOPERATIVE TODAY. MIRZA JACK SPLORRAINECC
--- NOTE | 2016-12-24 13:15 | NUR ---
Nurse to nurse report given to Essence at [facility].
--- NOTE | 2016-12-24 13:15 | NUR ---
IV D/C'D, SITE ASYMPTOMATIC, DISCHARGE PACKET GIVEN TO DAUGHTER FOR CHC, ATE 75% OF MEAL FOR LUNCH MIRZA CHOW
--- NOTE | 2016-12-24 13:28 | NUR ---
PHYSICAL THERAPY Susana seen this PM and doing a little better then this morning, sister present. Transfer sit/stand X 2, falling back in her chair first time MIN A X 1. Pt up on her second try MIN A X 1. gait 110' X 1, IN DOMAIN ARCHITECT X 1, cueing for gait, balance safety and turns. Pt back up in her bedside chair, call light bed alarm and IV coming out. THEODORA GONZALEZ LADIES SUIT OPERATOR.
--- NOTE | 2016-12-24 13:30 | NUR ---
DISCHARGED VIA W/C TO CAR IN CARE OF DAUGHTER, STUDENT ACCOMPANIED PT TO CAR, CONDITION STABLE MIRZA JACK SPNRCC
--- NOTE | 2016-12-25 07:51 | NUR ---
PHYSICAL THERAPY CO-SIGN I approve of the Phyical Therapy notes written above. EDYTA LEBRON PT
== END 2016-12-24 13:30 | disposition other institution (70) | DRG 563 ==
LOC: ED 10:33 → 4E 13:28 → EDHOLD 13:28 → 4E 13:57
PROVIDERS: Student in an Organized Health Care Education/Training Program; ADMIT Internal Medicine
DX: S42.035A Nondisplaced fracture of lateral end of left clavicle, initial encounter for closed fracture (principal); E44.0 Moderate protein-calorie malnutrition; J96.10 Chronic respiratory failure, unspecified whether with hypoxia or hypercapnia; N39.0 Urinary tract infection, site not specified; Z68.1 Body mass index [BMI] 19.9 or less, adult; S52.532A Colles' fracture of left radius, initial encounter for closed fracture; J44.9 Chronic obstructive pulmonary disease, unspecified; R62.7 Adult failure to thrive; K59.09 Other constipation; E78.2 Mixed hyperlipidemia; N18.9 Chronic kidney disease, unspecified; I12.9 Hypertensive chronic kidney disease with stage 1 through stage 4 chronic kidney disease, or unspecified chronic kidney disease; B96.20 Unspecified Escherichia coli [E. coli] as the cause of diseases classified elsewhere; F17.210 Nicotine dependence, cigarettes, uncomplicated; R73.03 Prediabetes; Z90.710 Acquired absence of both cervix and uterus; Z87.01 Personal history of pneumonia (recurrent); Z79.899 Other long term (current) drug therapy; Z79.82 Long term (current) use of aspirin; Z91.048 Other nonmedicinal substance allergy status; Z91.041 Radiographic dye allergy status; Z71.6 Tobacco abuse counseling; Z88.6 Allergy status to analgesic agent; Z82.49 Family history of ischemic heart disease and other diseases of the circulatory system; Z91.81 History of falling; Z53.29 Procedure and treatment not carried out because of patient's decision for other reasons; W18.39XA Other fall on same level, initial encounter; Y93.89 Activity, other specified; Y92.098 Other place in other non-institutional residence as the place of occurrence of the external cause; Y99.8 Other external cause status

== ENCOUNTER 2017-01-19 15:50 | Inpatient (IN) | payer MEDICARE ==
[~2017-01-19] VITALS: Ht 162.5 cm; Wt 46.7 kg
[~2017-01-19 15:50] MED LIST changes: +AMITRIPTYLINE25 MG PO; +DOCUSATE SODIU100 M2 PO; +LIPITOR10 MG PO; +LISINOPRIL10 M1 PO; +OMEPRAZOLE D/R20 MG PO; +SENNA8.6 MG PO; +SINGULAIR10 M1 PO
[2017-01-19 16:09] VITALS: BP 112/54
[2017-01-19 16:48] LABS: BASO % 0.4 % (0.0-1.0); EOS # 0.4 10*3/uL (0.0-0.4); EOS % 5.4 % (1.0-4.0); HEMATOCRIT 33.4 % (37.0-47.0); HEMOGLOBIN 10.7 g/dl (12.0-16.0); LYMPH # 1.3 10*3/uL (1.3-4.4); MEAN CELL VOLUME 97.9 fl (81.0-99.0); MEAN CORPUSCULAR HGB 31.4 pg (27.0-31.0); MEAN PLATELET VOLUME 10.8 fl (9.6-12.3); MONO # 0.5 10*3/uL (0.1-1.0); MONO % 7.9 % (3.0-9.0); NEUT # 4.5 10*3/uL (2.3-7.9); NEUT % 67.2 % (47.0-73.0); PLATELET COUNT AUTOMATED 251 10*3/uL (130-400); RED BLOOD COUNT 3.41 10*6/uL (4.10-5.10); RED CELL DISTRI WIDTH 12.6 % (0-14.5); WHITE BLOOD COUNT 6.7 10*3/uL (4.8-10.8)
--- NOTE | 2017-01-19 16:54 | NUR ---
PATIENT TO X RAY AT THIS TIME.
[2017-01-19 17:04] LABS: ALBUMIN 3.2 gm/dl (3.1-4.5); CREATININE 1.67 mg/dL (0.55-1.02); POTASSIUM 4.2 mmol/L (3.5-5.1); TOTAL PROTEIN 6.9 gm/dL (6.4-8.2)
--- NOTE | 2017-01-19 18:17 | NUR ---
PATIENT GIVEN DIET TRAY.
[2017-01-19 19:07] VITALS: BP 151/55
[2017-01-19 20:00] VITALS: BP 168/63
[2017-01-19 20:10] VITALS: BP 168/63
--- NOTE | 2017-01-19 20:10 | NUR ---
Time: 2009 A 81 year old FEMALE admitted to 5E under services of TERESITA COMBS DO. Pt. arrived via bed from ER. Chief complaint: SOB, COPD EXACERBATION, BRONCHOPMEUMONIA. AIMEE IRELAND
[2017-01-20] VITALS: BP 160/71
[2017-01-20 07:52] LABS: HEMATOCRIT 35.3 % (37.0-47.0); HEMOGLOBIN 11.3 g/dl (12.0-16.0); MEAN CELL VOLUME 98.3 fl (81.0-99.0); MEAN CORPUSCULAR HGB 31.5 pg (27.0-31.0); MEAN PLATELET VOLUME 11.6 fl (9.6-12.3); PLATELET COUNT AUTOMATED 266 10*3/uL (130-400); RED BLOOD COUNT 3.59 10*6/uL (4.10-5.10); RED CELL DISTRI WIDTH 12.4 % (0-14.5); WHITE BLOOD COUNT 6.9 10*3/uL (4.8-10.8)
[2017-01-20 08:00] VITALS: BP 146/58
[2017-01-20 08:01] LABS: CREATININE 1.37 mg/dL (0.55-1.02); PHOSPHOROUS 4.2 mg/dL (2.5-4.9); POTASSIUM 4.7 mmol/L (3.5-5.1)
[2017-01-20 08:08] LABS: THYROID STIM HORMONE (HS) 0.481 uIU/ml (0.358-4.75)
[2017-01-20 08:22] LABS: TOTAL CELLS COUNTED 100 #CELLS
[2017-01-20 08:23] LABS: PLATELET SUFFICIENCY NORMAL (NORMAL)
--- NOTE | 2017-01-20 08:30 | NUR ---
Dust Collector in to talk to patient. Patient states lives at home with daughter and son-in-law. There are 2 steps in the home. Physician: Dr. Kelly Huerta Pharmacy: [facility] [place] [facility]: [facility] Patient's level of ADLs: INDEPENDENT Patient has working utilities: yes DME: none Follow-up physician's appointment after d/c: will be made by hospitalist nurse director upon discharge Does patient want to access PORTAL?: no Discharge plan discussed with patient. She lives at home with her daughter and son-in-law. She is independent in her ADLs and ambulation. When medically stable she will be discharged to home with resuming [facility]. MERCEDES HUFF
[2017-01-20 09:59] LABS: VITAMIN D, 25-HYDROXY 36.6 ng/mL (30-100)
--- NOTE | 2017-01-20 11:28 | NUR ---
PTS HOME MEDICATIONS VERIFIED WITH [facility]. DR FLORES NOTIFIED.
[2017-01-20 12:00] VITALS: BP 146/66
--- NOTE | 2017-01-20 13:49 | NUR ---
PHYSICAL THERAPY PAtient evaluated on 5, full evaluation to follow. Continue with PT as per plan of care with fall, acute debility and recent low 02 SATS precautions. [facility] refuses [facility]. refuses (A) device for gait as well. Patient is moderate complexity via chart review, tests and evaluation: 27609. Thank you for this referraL. Hailey Jain,PT
[2017-01-20 16:00] VITALS: BP 129/50
[2017-01-20 20:00] VITALS: BP 131/65
--- NOTE | 2017-01-20 21:00 | NUR ---
RESTING IN BED WITH NO DISTRESS NOTED. RESPIRATIONS EASY. LUNGS DIMINISHED, CLEAR. PULSE OX 97% RA. NON-PRODUCTIVE COUGH PER PT. TRACE BLE EDEMA NOTED - OFFERED AND EDUCATED REGARDING TEDS DECLINED. IV FLUIDS INFUSING PER ORDER. CALL LIGHT WITHIN REACH. NO VOICED COMPLAINTS. BED ALARM MAINTAINED FOR SAFETY
[2017-01-21] VITALS: BP 135/54
--- NOTE | 2017-01-21 | NUR ---
REMAINS AWAKE, WATCHING TV. NO DISTRESS NOTED. RESPIRATIONS EASY. VSS. IV FLUIDS MAINTAINED. CALL LIGHT WITHIN REACH. BED ALARM MAINTAINED FOR SAFETY
--- NOTE | 2017-01-21 03:00 | NUR ---
SLEEPING. NO DISTRESS NOTED. RESPIRATIONS EASY. IV FLUIDS MAINTAINED. CALL LIGHT WITHIN REACH
--- NOTE | 2017-01-21 06:00 | NUR ---
RESTED THROUGHOUT NIGHT WITH NO DISTRESS NOTED. RESPIRATIONS EASY. IV FLUIDS MAINTAINED. CALL LIGHT WITHIN REACH. NO VOICED COMPLAINTS THIS SHIFT. BED ALARM MAINTAINED FOR SAFETY
[2017-01-21 07:38] LABS: MEAN CELL VOLUME 98.1 fl (81.0-99.0); MEAN CORPUSCULAR HGB 31.6 pg (27.0-31.0); MEAN CORPUSCULAR HGB CONC 32.3 g/dl (33.0-37.0); MEAN PLATELET VOLUME 11.4 fl (9.6-12.3); PLATELET COUNT AUTOMATED 252 10*3/uL (130-400); RED BLOOD COUNT 3.16 10*6/uL (4.10-5.10); RED CELL DISTRI WIDTH 12.6 % (0-14.5); WHITE BLOOD COUNT 17.2 10*3/uL (4.8-10.8)
[2017-01-21 07:59] LABS: CREATININE 1.49 mg/dL (0.55-1.02); PHOSPHOROUS 3.2 mg/dL (2.5-4.9)
[2017-01-21 08:00] VITALS: BP 136/50
[2017-01-21 08:14] LABS: PLATELET SUFFICIENCY NORMAL (NORMAL); TOTAL CELLS COUNTED 100 #CELLS
--- NOTE | 2017-01-21 08:43 | NUR ---
PT RESTING IN CHAIR, EATING BREAKFAST. NO DISTRESS NOTED. WILL MONITOR
--- NOTE | 2017-01-21 09:00 | NUR ---
Real Estate Executive Assistant in to see patient. She is sitting up in the bedside chair. There are no needs or request at this time. When medically stable she will be discharged to home with [facility].
[2017-01-21 12:00] VITALS: BP 130/56
--- NOTE | 2017-01-21 14:35 | NUR ---
PHYSICAL THERAPY Patient presented to therapy with report of feeling a little tired this morning. Patient was treated at 8:05 am. Patient performed transfers with SBA to CGA. Patient performed gait with SPECIAL SERVICE REPRESENTATIVE X 1 for 104' x 1. Patient no LOB or other difficulty with gait or transfers. Patient performed seated ther ex in bedside chair x 20 reps each LE in all planes of movement. Patient was left in seated position with call light within reach. SANTOSH LOWE MANAGER BENEFIT
[2017-01-21 16:00] VITALS: BP 122/54
[2017-01-21 20:00] VITALS: BP 142/54
--- NOTE | 2017-01-21 20:30 | NUR ---
AWAKE, PLEASANT. WATCHING TV WITH NO DISTRESS NOTED. RESPIRATIONS EASY. LUNGS DIMINISHED. PULSE OX 92% RA, OFFERED O2 BUT DECLINED. INFREQUENT NON-PRODUCTIVE COUGH. CONTINUES TO REFUSE TEDS. IV FLUIDS INFUSING PER ORDER. CALL LIGHT WITHIN REACH. NO VOICED COMPLAINTS. BED ALARM MAINTAINED FOR SAFETY
[2017-01-22] VITALS: BP 145/82
--- NOTE | 2017-01-22 | NUR ---
REMAINS AWAKE. NO DISTRESS NOTED. VSS. CALL LIGHT WITHIN REACH. BED ALARM MAINTAINED
--- NOTE | 2017-01-22 03:00 | NUR ---
SLEEPING. IV FLUIDS MAINTAINED. BED ALARM MAINTAINED
[2017-01-22 05:57] LABS: CREATININE 1.19 mg/dL (0.55-1.02); PHOSPHOROUS 2.9 mg/dL (2.5-4.9); POTASSIUM 3.9 mmol/L (3.5-5.1)
[2017-01-22 06:00] LABS: HEMATOCRIT 27.7 % (37.0-47.0); MEAN CELL VOLUME 98.9 fl (81.0-99.0); MEAN CORPUSCULAR HGB 32.1 pg (27.0-31.0); MEAN CORPUSCULAR HGB CONC 32.5 g/dl (33.0-37.0); MEAN PLATELET VOLUME 11.6 fl (9.6-12.3); PLATELET COUNT AUTOMATED 241 10*3/uL (130-400); RED CELL DISTRI WIDTH 13.2 % (0-14.5); WHITE BLOOD COUNT 18.9 10*3/uL (4.8-10.8)
--- NOTE | 2017-01-22 06:00 | NUR ---
RESTED THROUGHOUT NIGHT WITH NO DISTRESS NOTED. RESPIRATIONS EASY. IV FLUIDS MAINTAINED. CALL LIGHT WITHIN REACH. NO VOICED COMPLAINTS THIS SHIFT. BED ALARM MAINTAINED FOR SAFETY
[2017-01-22 07:09] LABS: PLATELET SUFFICIENCY NORMAL (NORMAL); TOTAL CELLS COUNTED 100 #CELLS
[2017-01-22 08:00] VITALS: BP 140/62
--- NOTE | 2017-01-22 08:20 | NUR ---
PT RESTING IN BED. NO DISTRESS NOTED. WILL MONITOR. CALL LIGHT WITHIN REACH
--- NOTE | 2017-01-22 08:30 | NUR ---
Messenger Floorperson in to see patient. No new needs or request at this time. When medically stable she will be discharged to home with resuming [facility].
--- NOTE | 2017-01-22 10:00 | NUR ---
PHYSICAL THERAPY Patient refused therapy this AM saying she doesn't feel like it. Will check back later. EAR;Demetris LOWE TRAFFIC CHIEF
[2017-01-22] MEDS ORDERED: PREDNISONE10 MG PO (10:46)
[2017-01-22] MEDS ORDERED: DOXYCYCLINE100 M3 PO (10:46)
[2017-01-22 12:00] VITALS: BP 134/60
--- NOTE | 2017-01-22 12:39 | NUR ---
PT ASSESSED FOR HOME O2 FOLLOWS: SAT 93% RA AT REST SAT 86% RA DURING AMBULATION SAT 90-92% WITH 2L/M NC APPLIED DURING AMBULATION SAST 93% RA AT REST DURING RECOVERY HR 67/67 (PRE/POST) BP 140/62 (AM BP) 150/78 POST AMBULATION RR 18 SLIGHT SOB NOTICED. PHYSICAL THERAPY PRESENT. PT HAD SLIGHT UNSTEADINESS WHEN WALKING. RN NOTIFIED. NOTIFIED.
--- NOTE | 2017-01-22 13:45 | NUR ---
PHYSICAL THERAPY Patient presented to therapy in seated position with no concerns or complaints. Patient performed gait with no spO2 with BUSINESS CONTINUITY CONSULTANT for 160' x 1 with O2 dropping to 89% , at which point, patient was connected to O2 tank with nasal cannula at 2 liters of 02 and continued ambulation to room. Patient's O2 QUICKLY RECOVERED TO 93% WITH THE 2 LITERS OF O2. SANTOSH LOWE AUTOMATION CONSULTANT
--- NOTE | 2017-01-22 15:00 | NUR ---
ASSUMED CARE OF PT AT THIS TIME, RESPS EASY AND NONLABORED WITH NO S/S OF DISTRESS CALL LIGHT WITH IN REACH
--- NOTE | 2017-01-22 15:23 | NUR ---
Patient is being discharged to home to resume [facility] home health. Received order, faxed clincals.
[2017-01-22 16:00] VITALS: BP 150/53
--- NOTE | 2017-01-22 17:06 | NUR ---
Discharge instructions reviewed with patient/family. Patient receptive and verbalizes understanding. Follow-up care arranged. Written instructions given to patient/family. JD STRICKLAND
== END 2017-01-22 17:06 | disposition home health service (06) | DRG 682 ==
LOC: ED 15:50 → 5E 18:30 → EDHOLD 18:30 → 5E 19:21
PROVIDERS: Internal Medicine Nephrology; Nurse Practitioner Family; Student in an Organized Health Care Education/Training Program; ADMIT Internal Medicine
DX: N17.0 Acute kidney failure with tubular necrosis (principal); J18.0 Bronchopneumonia, unspecified organism; E44.0 Moderate protein-calorie malnutrition; D64.9 Anemia, unspecified; J44.0 Chronic obstructive pulmonary disease with (acute) lower respiratory infection; J98.11 Atelectasis; J44.1 Chronic obstructive pulmonary disease with (acute) exacerbation; Z68.1 Body mass index [BMI] 19.9 or less, adult; R73.03 Prediabetes; I25.10 Atherosclerotic heart disease of native coronary artery without angina pectoris; I10 Essential (primary) hypertension; D72.810 Lymphocytopenia; F17.210 Nicotine dependence, cigarettes, uncomplicated; Z90.710 Acquired absence of both cervix and uterus; Z95.820 Peripheral vascular angioplasty status with implants and grafts; Z79.02 Long term (current) use of antithrombotics/antiplatelets; Z79.82 Long term (current) use of aspirin; Z71.6 Tobacco abuse counseling; Z79.899 Other long term (current) drug therapy; Z91.041 Radiographic dye allergy status; Z88.8 Allergy status to other drugs, medicaments and biological substances; Z91.048 Other nonmedicinal substance allergy status; Z82.49 Family history of ischemic heart disease and other diseases of the circulatory system

== ENCOUNTER → 2017-01-27 | Outpatient (CLI) | payer MEDICARE ==
[~2017-01-27] MED LIST changes: +DOXYCYCLINE100 M3 PO
== END | disposition home or self-care (01) ==
LOC: ORTHO 01:16
DX: S42.002D Fracture of unspecified part of left clavicle, subsequent encounter for fracture with routine healing (principal); X58.XXXD Exposure to other specified factors, subsequent encounter

== ENCOUNTER 2017-02-09 17:30 | Emergency (ER) | payer MEDICARE ==
[~2017-02-09] VITALS: Wt 45.4 kg
[2017-02-09 18:21] LABS: BASO # 0.1 10*3/uL (0.0-0.1); BASO % 0.4 % (0.0-1.0); EOS # 0.2 10*3/uL (0.0-0.4); EOS % 1.6 % (1.0-4.0); HEMATOCRIT 40.4 % (37.0-47.0); HEMOGLOBIN 12.7 g/dl (12.0-16.0); LYMPH # 1.4 10*3/uL (1.3-4.4); LYMPH % 10.3 % (27.0-41.0); MEAN CELL VOLUME 100.5 fl (81.0-99.0); MEAN CORPUSCULAR HGB 31.6 pg (27.0-31.0); MEAN CORPUSCULAR HGB CONC 31.4 g/dl (33.0-37.0); MEAN PLATELET VOLUME 11.1 fl (9.6-12.3); MONO # 1.1 10*3/uL (0.1-1.0); MONO % 8.3 % (3.0-9.0); NEUT # 10.4 10*3/uL (2.3-7.9); NEUT % 78.9 % (47.0-73.0); PLATELET COUNT AUTOMATED 179 10*3/uL (130-400); RED BLOOD COUNT 4.02 10*6/uL (4.10-5.10); RED CELL DISTRI WIDTH 14.9 % (0-14.5); WHITE BLOOD COUNT 13.2 10*3/uL (4.8-10.8)
[2017-02-09 18:37] LABS: ALBUMIN 3.7 gm/dl (3.1-4.5); CREATININE 1.42 mg/dL (0.55-1.02); POTASSIUM 4.5 mmol/L (3.5-5.1)
== END 2017-02-09 20:28 | disposition home or self-care (01) ==
LOC: ED 17:30
PROVIDERS: Emergency Medicine
DX: R06.02 Shortness of breath (principal); J44.1 Chronic obstructive pulmonary disease with (acute) exacerbation; I25.10 Atherosclerotic heart disease of native coronary artery without angina pectoris; I10 Essential (primary) hypertension; F17.200 Nicotine dependence, unspecified, uncomplicated; N17.0 Acute kidney failure with tubular necrosis; Z91.041 Radiographic dye allergy status; Z90.710 Acquired absence of both cervix and uterus; Z88.5 Allergy status to narcotic agent; Z88.8 Allergy status to other drugs, medicaments and biological substances; Z79.899 Other long term (current) drug therapy

== ENCOUNTER 2017-02-24 15:57 | Inpatient (IN) | payer MEDICARE ==
[2017-02-24] VITALS (7 sets, daily range): BP systolic 128–146; BP diastolic 58–71
[~2017-02-24] VITALS: Ht 160 cm; Wt 45.4 kg
--- NOTE | ~2017-02-24 | CON ---
[place], [place] REPORT OF CONSULTATION NAME: LEA GRANT UNIT #: [id number] ROOM: 507 DOCTOR: RICCARDO MCGINNIS MD BIRTHDATE: [birth year] DOS: 02/26/2017 CHIEF COMPLAINT: "I told them all to go to [facility]." HISTORY OF PRESENT ILLNESS: This is an 81-year-old white female who presented to [facility] Emergency Room with the complaint of weakness and slurred speech. Per the patient's [id number], the patient had rolled out of the bed on the night prior to admission and slept on the floor. When the [id number]-ne-rbv found her and got her up, she noticed that she started to have slurred speech and was talking out of her head. She could not lift her arms and grab to grab bar and had become very stiff in her gait. She was brought then into the Emergency Room to rule out the possibility of a TIA or CVA. The patient has had problems with poor sleep and appetite prior to this. From a psychiatric standpoint currently, she seems somewhat confused and disoriented as well as depressed. PAST MEDICAL HISTORY: Remarkable for failure to thrive, dehydration, gait disturbance, metabolic encephalopathy, tachycardia, leukocytosis, hyper magnesium, acute renal failure due to tubular necrosis, elevated CRP, elevated BNP, hypertension, prediabetes, vertigo and coronary artery disease. MENTAL STATUS: The patient is alert and oriented to person, place, but not time. Mood seems depressed. Affect is flat and blunted with a constricted range. Some of her initial responses were rather terse and dismissive. There is no hypomania or libby. There are no overt auditory or visual hallucinations. No delusions, no paranoia. Short term memory had gaps. DIAGNOSIS: Major depression, recurrent. PLAN: I will go ahead and discontinue her temazepam and utilize Remeron as an antidepressant that will aid sleep and dramatically improve sleep and appetite. At this point, should you require further intervention, please re-notify me. RICCARDO MCGINNIS MD CM:CONSTR:REPORT OF CONSULTATION 0934 02/26/17 0959 interface
[2017-02-24 16:57] LABS: BASO # 0.1 10*3/uL (0.0-0.1); BASO % 0.4 % (0.0-1.0); EOS # 0.1 10*3/uL (0.0-0.4); HEMATOCRIT 38.1 % (37.0-47.0); HEMOGLOBIN 12.4 g/dl (12.0-16.0); LYMPH # 1.1 10*3/uL (1.3-4.4); LYMPH % 9.4 % (27.0-41.0); MEAN CELL VOLUME 96.5 fl (81.0-99.0); MEAN CORPUSCULAR HGB 31.4 pg (27.0-31.0); MEAN CORPUSCULAR HGB CONC 32.5 g/dl (33.0-37.0); MEAN PLATELET VOLUME 10.6 fl (9.6-12.3); MONO # 0.8 10*3/uL (0.1-1.0); MONO % 6.6 % (3.0-9.0); NEUT # 9.7 10*3/uL (2.3-7.9); NEUT % 82.1 % (47.0-73.0); PLATELET COUNT AUTOMATED 347 10*3/uL (130-400); RED BLOOD COUNT 3.95 10*6/uL (4.10-5.10); WHITE BLOOD COUNT 11.8 10*3/uL (4.8-10.8)
[2017-02-24 17:05] LABS: ACT PARTIAL THROMBO TIME 24.6 SECONDS (20.8-31.5); INTERNATIONAL NORM RATIO 1.1 (2.0-3.5)
[2017-02-24 17:12] LABS: ALBUMIN 3.1 gm/dl (3.1-4.5); ALKALINE PHOSPHATASE 105 U/L (45-117); BUN 33 mg/dl (7-24); CHLORIDE 107 mmol/L (98-107); CREATININE 1.62 mg/dL (0.55-1.02); LIPASE 101 U/L (73-393); POTASSIUM 4.4 mmol/L (3.5-5.1); SGOT/AST 15 IU/L (3-35); SGPT/ALT 15 U/L (12-78); SODIUM 139 mmol/L (136-145); TOTAL PROTEIN 7.4 gm/dL (6.4-8.2)
[2017-02-24 17:13] LABS: TROPONIN I < 0.015 ng/ml (<0.045)
[2017-02-24 19:02] LABS: BILIRUBIN NEGATIVE (NEGATIVE); BLOOD NEGATIVE (NEGATIVE); CLARITY CLEAR (CLEAR); COLOR YELLOW (YELLOW); GLUCOSE NEGATIVE (NEGATIVE); KETONE TRACE (NEGATIVE); LEUKO ESTERASE NEGATIVE (NEGATIVE); NITRITE NEGATIVE (NEGATIVE); PH 5.5 (5.0-9.0); UROBILINOGEN 0.2 E.U./dl (0.2-1.0)
[2017-02-24 19:13] LABS: BACTERIA 1+; EPITHELIAL CELLS TNTC; RBC 0-2 rbc/hpf (0-2); WBC 0-2 wbc/hpf (0-5); YEAST TRACE
[2017-02-25] VITALS: BP 132/63
[2017-02-25 06:54] LABS: BASO # 0.1 10*3/uL (0.0-0.1); BASO % 0.7 % (0.0-1.0); EOS # 0.2 10*3/uL (0.0-0.4); EOS % 1.7 % (1.0-4.0); HEMOGLOBIN 11.2 g/dl (12.0-16.0); LYMPH # 1.5 10*3/uL (1.3-4.4); MEAN CELL VOLUME 98.3 fl (81.0-99.0); MEAN CORPUSCULAR HGB 31.5 pg (27.0-31.0); MEAN PLATELET VOLUME 11.1 fl (9.6-12.3); MONO # 0.7 10*3/uL (0.1-1.0); MONO % 6.9 % (3.0-9.0); NEUT # 7.7 10*3/uL (2.3-7.9); NEUT % 75.1 % (47.0-73.0); PLATELET COUNT AUTOMATED 315 10*3/uL (130-400); RED BLOOD COUNT 3.56 10*6/uL (4.10-5.10); WHITE BLOOD COUNT 10.2 10*3/uL (4.8-10.8)
[2017-02-25 07:30] LABS: ALBUMIN 2.7 gm/dl (3.1-4.5); CREATININE 1.2 mg/dL (0.55-1.02); POTASSIUM 4.2 mmol/L (3.5-5.1)
[2017-02-25 07:32] LABS: TOTAL PROTEIN 6.2 gm/dL (6.4-8.2)
[2017-02-25 08:00] VITALS: BP 140/61
[2017-02-25 12:00] VITALS: BP 142/62
[2017-02-25 16:00] VITALS: BP 146/60
[2017-02-25 20:00] VITALS: BP 142/60
[2017-02-26] VITALS: BP 136/66
[2017-02-26 07:37] LABS: CHLORIDE 108 mmol/L (98-107); CREATININE 0.99 mg/dL (0.55-1.02); POTASSIUM 3.9 mmol/L (3.5-5.1); SODIUM 140 mmol/L (136-145)
[2017-02-26 07:39] LABS: BUN 18 mg/dl (7-24)
[2017-02-26 08:00] VITALS: BP 149/52
[2017-02-26 12:00] VITALS: BP 149/65
[2017-02-26 16:00] VITALS: BP 148/60
[2017-02-26 20:00] VITALS: BP 155/63
[2017-02-27] VITALS: BP 155/63
[2017-02-27 08:00] VITALS: BP 154/62
[2017-02-27 16:00] VITALS: BP 158/68
[2017-02-27 20:00] VITALS: BP 156/67
[2017-02-28] VITALS: BP 149/63
[2017-02-28 06:57] LABS: BASO # 0.1 10*3/uL (0.0-0.1); BASO % 0.4 % (0.0-1.0); EOS # 0.1 10*3/uL (0.0-0.4); EOS % 0.7 % (1.0-4.0); HEMATOCRIT 34.4 % (37.0-47.0); LYMPH # 1.5 10*3/uL (1.3-4.4); LYMPH % 12.6 % (27.0-41.0); MEAN CELL VOLUME 96.4 fl (81.0-99.0); MEAN CORPUSCULAR HGB 30.8 pg (27.0-31.0); MEAN PLATELET VOLUME 11.5 fl (9.6-12.3); MONO # 1.1 10*3/uL (0.1-1.0); MONO % 9.6 % (3.0-9.0); NEUT # 8.9 10*3/uL (2.3-7.9); NEUT % 76.3 % (47.0-73.0); PLATELET COUNT AUTOMATED 293 10*3/uL (130-400); RED BLOOD COUNT 3.57 10*6/uL (4.10-5.10); RED CELL DISTRI WIDTH 13.8 % (0-14.5); WHITE BLOOD COUNT 11.7 10*3/uL (4.8-10.8)
[2017-02-28 07:16] LABS: CREATININE 0.96 mg/dL (0.55-1.02)
[2017-02-28 08:00] VITALS: BP 168/72
[2017-02-28 08:19] LABS: BILIRUBIN NEGATIVE (NEGATIVE); BLOOD TRACE-INTACT (NEGATIVE); CLARITY CLOUDY (CLEAR); COLOR YELLOW (YELLOW); GLUCOSE NEGATIVE (NEGATIVE); KETONE NEGATIVE (NEGATIVE); LEUKO ESTERASE 2+ (NEGATIVE); NITRITE POSITIVE (NEGATIVE); SPECIFIC GRAVITY <= 1.005 (1.005-1.030); UROBILINOGEN 0.2 E.U./dl (0.2-1.0)
[2017-02-28 08:37] LABS: BACTERIA 4+; WBC 41-50 wbc/hpf (0-5)
[2017-02-28 08:56] VITALS: BP 152/58
[2017-02-28 12:00] VITALS: BP 149/64
[2017-02-28] MEDS ORDERED: MIRTAZAPINE15 M2 PO (14:10)
[2017-02-28 16:00] VITALS: BP 102/46
== END 2017-02-28 19:08 | disposition home health service (06) | DRG 682 ==
LOC: ED 15:57 → EDHOLD 19:34 → 5E 19:34 → EDHOLD 19:56 → 5E 20:14
PROVIDERS: Emergency Medicine; Hospitalist; Internal Medicine; Student in an Organized Health Care Education/Training Program
DX: N17.0 Acute kidney failure with tubular necrosis (principal); G93.41 Metabolic encephalopathy; F33.9 Major depressive disorder, recurrent, unspecified; E83.41 Hypermagnesemia; G45.9 Transient cerebral ischemic attack, unspecified; E86.0 Dehydration; R62.7 Adult failure to thrive; R26.2 Difficulty in walking, not elsewhere classified; I10 Essential (primary) hypertension; R73.03 Prediabetes; Z66 Do not resuscitate; Z51.5 Encounter for palliative care; I25.10 Atherosclerotic heart disease of native coronary artery without angina pectoris; J41.8 Mixed simple and mucopurulent chronic bronchitis; R00.0 Tachycardia, unspecified; D72.829 Elevated white blood cell count, unspecified; R79.82 Elevated C-reactive protein (CRP); R79.89 Other specified abnormal findings of blood chemistry; W06.XXXA Fall from bed, initial encounter; Z86.73 Personal history of transient ischemic attack (TIA), and cerebral infarction without residual deficits; Z87.01 Personal history of pneumonia (recurrent); Z90.710 Acquired absence of both cervix and uterus; Z95.828 Presence of other vascular implants and grafts; Z82.49 Family history of ischemic heart disease and other diseases of the circulatory system; Z91.041 Radiographic dye allergy status; Z91.048 Other nonmedicinal substance allergy status; Z88.8 Allergy status to other drugs, medicaments and biological substances; Z79.899 Other long term (current) drug therapy; Z79.82 Long term (current) use of aspirin; Y93.84 Activity, sleeping; Y92.092 Bedroom in other non-institutional residence as the place of occurrence of the external cause; Y99.8 Other external cause status

== ENCOUNTER → 2017-05-21 | Outpatient (CLI) | payer MEDICARE ==
[~2017-05-21] MED LIST changes: +MIRTAZAPINE15 M2 PO
== END | disposition home or self-care (01) ==
LOC: ORTHO 00:31
DX: S72.044D Nondisplaced fracture of base of neck of right femur, subsequent encounter for closed fracture with routine healing (principal); X58.XXXD Exposure to other specified factors, subsequent encounter

== ENCOUNTER → 2017-05-30 | Outpatient (CLI) | payer MEDICARE ==
[2017-05-30 15:12] LABS: BILIRUBIN NEGATIVE (NEGATIVE); BLOOD TRACE-INTACT (NEGATIVE); CLARITY CLOUDY (CLEAR); COLOR YELLOW (YELLOW); GLUCOSE NEGATIVE (NEGATIVE); KETONE NEGATIVE (NEGATIVE); LEUKO ESTERASE 3+ (NEGATIVE); NITRITE NEGATIVE (NEGATIVE); PH 7.5 (5.0-9.0); UROBILINOGEN 0.2 E.U./dl (0.2-1.0)
[2017-05-30 15:36] LABS: BACTERIA TRACE; RBC 0-2 rbc/hpf (0-2); WBC TNTC wbc/hpf (0-5)
== END | disposition home or self-care (01) ==
LOC: LAB 14:55
PROVIDERS: Nurse Practitioner Primary Care
DX: R32 Unspecified urinary incontinence (principal)

== ENCOUNTER 2017-06-17 15:08 | Inpatient (IN) | payer MEDICARE ==
[~2017-06-17] VITALS: Ht 162.5 cm; Wt 45.4 kg
--- NOTE | ~2017-06-17 | PROC NOTE ---
[place], [place] PROCEDURE NOTE NAME: LEA GRANT UNIT #: [id number] ROOM: 523 DOCTOR: DONNY SOSA BIRTHDATE: [birth year] DOS: MODIFIED BARIUM SWALLOW BACKGROUND HISTORY AND MEDICAL HISTORY: The patient is an 82-year-old female referred for modified barium swallow due to family reports inconsistent coughing with liquids. The patient has a current diagnosis of CVA, HTN, CAD, UTI. The patient has a primary diagnosis of, UTI, weakness and dehydration. She has a history of acute RT, malnutrition moderately with protein, pre-diabetic, hypertension, COPD. She is currently on a regular diet. There was a chest x-ray completed on June 17. No change or acute process reported. Nursing indicates clear lungs and again the patient is currently on a regular diet. The patient reports she is independent and lives by herself, cooks for herself with her daughter's assistance when needed. She is edentulous at this time. She has dentures, but she typically does not wear them. She reports she has never been a big eater and is sometimes just not hungry. METHODS AND MATERIALS: The patient was seated upright in her wheelchair during the assessment. She was viewed in the lateral plane. The study was done in conjunction with radiologist, Dr. Plummer. The patient was able to follow simple commands inconsistently. She did appear tired during the evaluation and she was too weak to bring a cup up to her mouth to consume thin liquids on her own; therefore, she was assisted by FOUNTAIN PEN TURNER. The patient did suck out of a straw with holding a cup, but it was effortful and she was administered applesauce on roll by FOUNTAIN PEN TURNER to limit her fluoroscopy time. Overall, the patient was administered thin liquid in a large volume and amount per FOUNTAIN PEN TURNER, in which multiple swallows were required, but it was a large amount accidentally administered by FOUNTAIN PEN TURNER as the patient was probably week. She took one small sip of thin liquid via straw. She took one whole teaspoon of applesauce mixed with puree and a roll mixed with puree ORAL PHASE: The patient demonstrated mid to moderately slow ability to initiate formation of a bolus. She had min to moderate reduced bolus formation on thin liquids and applesauce. There was min to moderate flow propelling of this ____ through the oral phase posteriorly. Once the boluses hit the partial arches they rapidly fell into the vallecula; however, a very timely swallow was triggered less than 1.5 seconds from the vallecula into the pharynx, in which she only had trace amounts of the thin liquid and her vallecula and she independently took sequential dry swallows to clear this and it was cleared by the end of the MBS study. The patient had very slow and poor ____ mastication and manipulation of the roll. Within 45 seconds of being administered and sort of mentioning it, she expelled it into her hand and reported she could not chew it because she does not have her dentures and she reports she does not like her dentures, they do not fit well and often does not wear them. PHARYNGEAL PHASE: The patient demonstrated a timely pharyngeal phase, 1.5 seconds and less. There was no penetration aspiration. Her epiglottis tilted and inverted to protect the airway. Laryngeal elevation was judged to slightly reduced, but did not appear to affect the safety or function of her swallow. Pharyngeal residue was cleared, it was only in trace amounts and appeared on the [place], [place] PROCEDURE NOTE NAME: LEA GRANT UNIT #: [id number] ROOM: 523 DOCTOR: DONNY SOSA BIRTHDATE: [birth year] thin liquid, was cleared by the end of the swallow. RECOMMENDATIONS AND IMPRESSION: It was recommended that the patient consult with a dentist to get new dentures, but she reported she is not interested. It was recommended she trial a soft diet with moist foods, liquid added to her foods to her liking, for example gravy, milk, etc. and that her food be chopped up finely and small pieces. It was also recommended she supplement with naturally pureed foods such as cottage cheese, ____ curd, yogurt, oat meals, so she does not have to suffer nutritionally due to lengthy mastication and inadequate mastication due to ill-fitting dentures. Speech therapy is not recommended at this time. Family and patient were educated and in agreement with FOUNTAIN PEN TURNER recommendations. Thank you for this referral. DONNY SOSA CM:PROCNOTE:PROCEDURE NOTE [id number] DONNY SOSA
[2017-06-17 15:14] VITALS: BP 149/69
[2017-06-17 15:53] LABS: BASO # 0.1 10*3/uL (0.0-0.1); BASO % 0.7 % (0.0-1.0); EOS # 0.1 10*3/uL (0.0-0.4); EOS % 1.4 % (1.0-4.0); HEMATOCRIT 38.9 % (37.0-47.0); HEMOGLOBIN 12.5 g/dl (12.0-16.0); LYMPH # 1.5 10*3/uL (1.3-4.4); MEAN CELL VOLUME 94.6 fl (81.0-99.0); MEAN CORPUSCULAR HGB 30.4 pg (27.0-31.0); MEAN CORPUSCULAR HGB CONC 32.1 g/dl (33.0-37.0); MEAN PLATELET VOLUME 11.2 fl (9.6-12.3); MONO # 0.9 10*3/uL (0.1-1.0); MONO % 9.5 % (3.0-9.0); NEUT # 6.8 10*3/uL (2.3-7.9); NEUT % 72.2 % (47.0-73.0); PLATELET COUNT AUTOMATED 224 10*3/uL (130-400); RED BLOOD COUNT 4.11 10*6/uL (4.10-5.10); RED CELL DISTRI WIDTH 13.9 % (0-14.5); WHITE BLOOD COUNT 9.4 10*3/uL (4.8-10.8)
[2017-06-17 16:00] VITALS: BP 162/70
[2017-06-17 16:02] LABS: ACT PARTIAL THROMBO TIME 23.1 SECONDS (20.8-31.5)
[2017-06-17 16:09] LABS: ALBUMIN 3.5 gm/dl (3.1-4.5); ALKALINE PHOSPHATASE 367 U/L (45-117); BUN 30 mg/dl (7-24); CHLORIDE 104 mmol/L (98-107); CREATININE 1.48 mg/dL (0.55-1.02); POTASSIUM 3.5 mmol/L (3.5-5.1); SGOT/AST 19 IU/L (3-35); SGPT/ALT 58 U/L (12-78); SODIUM 138 mmol/L (136-145); TOTAL PROTEIN 7.4 gm/dL (6.4-8.2)
[2017-06-17 16:11] LABS: TROPONIN I < 0.015 ng/ml (<0.045)
[2017-06-17 16:55] VITALS: BP 158/62
[2017-06-17 17:10] VITALS: BP 162/70
[2017-06-17] MEDS ORDERED: PAMELOR25 MG PO (17:16)
[2017-06-17] MEDS ORDERED: VOLTAREN100 GM TD (17:16)
[2017-06-17] MEDS ORDERED: AMITRIPTYLINE25 MG PO (17:17)
[2017-06-17] MEDS ORDERED: SEPTDS PO (17:17)
[2017-06-17 17:58] VITALS: BP 158/68
[2017-06-17 20:00] VITALS: BP 145/60
[2017-06-18] VITALS: BP 138/59
[2017-06-18 06:45] LABS: BASO # 0.1 10*3/uL (0.0-0.1); BASO % 0.8 % (0.0-1.0); EOS # 0.1 10*3/uL (0.0-0.4); EOS % 1.4 % (1.0-4.0); HEMATOCRIT 34.7 % (37.0-47.0); HEMOGLOBIN 10.9 g/dl (12.0-16.0); LYMPH # 1.7 10*3/uL (1.3-4.4); LYMPH % 17.5 % (27.0-41.0); MEAN CELL VOLUME 95.9 fl (81.0-99.0); MEAN CORPUSCULAR HGB 30.1 pg (27.0-31.0); MEAN CORPUSCULAR HGB CONC 31.4 g/dl (33.0-37.0); MEAN PLATELET VOLUME 11.6 fl (9.6-12.3); MONO # 1.2 10*3/uL (0.1-1.0); NEUT # 6.7 10*3/uL (2.3-7.9); NEUT % 68.1 % (47.0-73.0); PLATELET COUNT AUTOMATED 214 10*3/uL (130-400); RED BLOOD COUNT 3.62 10*6/uL (4.10-5.10); RED CELL DISTRI WIDTH 13.6 % (0-14.5); WHITE BLOOD COUNT 9.8 10*3/uL (4.8-10.8)
[2017-06-18 07:05] LABS: ALBUMIN 2.7 gm/dl (3.1-4.5); ALKALINE PHOSPHATASE 289 U/L (45-117); CHLORIDE 111 mmol/L (98-107); CREATININE 0.98 mg/dL (0.55-1.02); PHOSPHOROUS 2.9 mg/dL (2.5-4.9); POTASSIUM 3.2 mmol/L (3.5-5.1); SGOT/AST 22 IU/L (3-35); SGPT/ALT 46 U/L (12-78); SODIUM 143 mmol/L (136-145); TOTAL PROTEIN 6.3 gm/dL (6.4-8.2)
[2017-06-18 07:06] LABS: BUN 20 mg/dl (7-24)
[2017-06-18 08:00] VITALS: BP 135/75
[2017-06-18 12:00] VITALS: BP 152/56
[2017-06-18 16:00] VITALS: BP 139/58
[2017-06-18 20:00] VITALS: BP 159/70
[2017-06-19] VITALS: BP 149/75
[2017-06-19 04:00] VITALS: BP 161/64
[2017-06-19 07:00] LABS: BASO # 0.1 10*3/uL (0.0-0.1); BASO % 0.8 % (0.0-1.0); EOS # 0.3 10*3/uL (0.0-0.4); EOS % 2.5 % (1.0-4.0); HEMATOCRIT 37.6 % (37.0-47.0); HEMOGLOBIN 12.1 g/dl (12.0-16.0); LYMPH # 1.5 10*3/uL (1.3-4.4); LYMPH % 14.5 % (27.0-41.0); MEAN CELL VOLUME 93.3 fl (81.0-99.0); MEAN CORPUSCULAR HGB CONC 32.2 g/dl (33.0-37.0); MEAN PLATELET VOLUME 11.5 fl (9.6-12.3); MONO # 1.1 10*3/uL (0.1-1.0); MONO % 10.4 % (3.0-9.0); NEUT # 7.3 10*3/uL (2.3-7.9); NEUT % 71.5 % (47.0-73.0); PLATELET COUNT AUTOMATED 225 10*3/uL (130-400); RED BLOOD COUNT 4.03 10*6/uL (4.10-5.10); RED CELL DISTRI WIDTH 13.7 % (0-14.5); WHITE BLOOD COUNT 10.2 10*3/uL (4.8-10.8)
[2017-06-19 07:16] LABS: BUN 11 mg/dl (7-24); CHLORIDE 107 mmol/L (98-107); CREATININE 0.78 mg/dL (0.55-1.02); POTASSIUM 3.3 mmol/L (3.5-5.1); SODIUM 142 mmol/L (136-145)
[2017-06-19 08:00] VITALS: BP 175/71
[2017-06-19 12:00] VITALS: BP 131/56
[2017-06-19 20:00] VITALS: BP 145/47
[2017-06-20] VITALS: BP 145/63
[2017-06-20 06:19] LABS: BASO # 0.1 10*3/uL (0.0-0.1); BASO % 0.5 % (0.0-1.0); EOS # 0.3 10*3/uL (0.0-0.4); EOS % 3.5 % (1.0-4.0); HEMATOCRIT 36.4 % (37.0-47.0); HEMOGLOBIN 11.4 g/dl (12.0-16.0); LYMPH # 1.7 10*3/uL (1.3-4.4); LYMPH % 17.3 % (27.0-41.0); MEAN CELL VOLUME 95.8 fl (81.0-99.0); MEAN CORPUSCULAR HGB CONC 31.3 g/dl (33.0-37.0); MEAN PLATELET VOLUME 11.6 fl (9.6-12.3); MONO # 0.9 10*3/uL (0.1-1.0); MONO % 9.1 % (3.0-9.0); NEUT # 6.7 10*3/uL (2.3-7.9); NEUT % 69.3 % (47.0-73.0); PLATELET COUNT AUTOMATED 231 10*3/uL (130-400); RED CELL DISTRI WIDTH 13.7 % (0-14.5); WHITE BLOOD COUNT 9.7 10*3/uL (4.8-10.8)
[2017-06-20 06:49] LABS: BUN 16 mg/dl (7-24); CHLORIDE 105 mmol/L (98-107); CREATININE 0.89 mg/dL (0.55-1.02); POTASSIUM 3.9 mmol/L (3.5-5.1); SODIUM 141 mmol/L (136-145)
[2017-06-20 08:00] VITALS: BP 159/70
[2017-06-20 12:00] VITALS: BP 137/53
[2017-06-20 16:00] VITALS: BP 153/56
[2017-06-20 20:00] VITALS: BP 127/48
[2017-06-21] VITALS: BP 133/55
[2017-06-21 07:33] LABS: BASO # 0.1 10*3/uL (0.0-0.1); BASO % 0.7 % (0.0-1.0); EOS # 0.4 10*3/uL (0.0-0.4); EOS % 4.3 % (1.0-4.0); HEMATOCRIT 36.9 % (37.0-47.0); HEMOGLOBIN 11.6 g/dl (12.0-16.0); LYMPH # 1.3 10*3/uL (1.3-4.4); LYMPH % 15.3 % (27.0-41.0); MEAN CELL VOLUME 94.1 fl (81.0-99.0); MEAN CORPUSCULAR HGB 29.6 pg (27.0-31.0); MEAN CORPUSCULAR HGB CONC 31.4 g/dl (33.0-37.0); MEAN PLATELET VOLUME 11.5 fl (9.6-12.3); MONO # 0.9 10*3/uL (0.1-1.0); MONO % 10.5 % (3.0-9.0); NEUT % 68.9 % (47.0-73.0); PLATELET COUNT AUTOMATED 243 10*3/uL (130-400); RED BLOOD COUNT 3.92 10*6/uL (4.10-5.10); RED CELL DISTRI WIDTH 13.8 % (0-14.5); WHITE BLOOD COUNT 8.7 10*3/uL (4.8-10.8)
[2017-06-21 07:51] LABS: ALBUMIN 2.8 gm/dl (3.1-4.5); ALKALINE PHOSPHATASE 283 U/L (45-117); BUN 19 mg/dl (7-24); CHLORIDE 103 mmol/L (98-107); CREATININE 0.89 mg/dL (0.55-1.02); SGOT/AST 52 IU/L (3-35); SGPT/ALT 84 U/L (12-78); SODIUM 139 mmol/L (136-145); TOTAL PROTEIN 6.5 gm/dL (6.4-8.2)
[2017-06-21 08:00] VITALS: BP 163/65
[2017-06-21 12:00] VITALS: BP 138/65
[2017-06-21 16:00] VITALS: BP 132/53
[2017-06-21 20:00] VITALS: BP 96/62
[2017-06-22] VITALS: BP 159/65
[2017-06-22 08:00] VITALS: BP 157/69
[2017-06-22 11:23] LABS: BILIRUBIN NEGATIVE (NEGATIVE); BLOOD 1+ (NEGATIVE); CLARITY SL CLOUDY (CLEAR); COLOR YELLOW (YELLOW); GLUCOSE NEGATIVE (NEGATIVE); KETONE NEGATIVE (NEGATIVE); LEUKO ESTERASE 3+ (NEGATIVE); NITRITE NEGATIVE (NEGATIVE); UROBILINOGEN 0.2 E.U./dl (0.2-1.0)
[2017-06-22 11:36] LABS: BACTERIA 3+; EPITHELIAL CELLS 16-20; RBC 21-30 rbc/hpf (0-2); WBC TNTC wbc/hpf (0-5)
[2017-06-22 12:00] VITALS: BP 121/59
[2017-06-22 16:00] VITALS: BP 149/63
[2017-06-22 20:00] VITALS: BP 155/60
[2017-06-23] VITALS: BP 188/82
[2017-06-23 08:00] VITALS: BP 155/64
[2017-06-23 12:00] VITALS: BP 146/86
== END 2017-06-23 15:20 | disposition home or self-care (01) | DRG 682 ==
LOC: ED 15:08 → 5E 16:20 → EDHOLD 16:20 → 5E 16:53
PROVIDERS: Emergency Medicine; Family Medicine; Physician Assistant; Student in an Organized Health Care Education/Training Program
PROC: BD1BYZZ Fluoroscopy of Mouth/Oropharynx using Other Contrast (ICD-10-PCS; principal; 2017-06-21)
DX: N17.0 Acute kidney failure with tubular necrosis (principal); G93.41 Metabolic encephalopathy; E44.0 Moderate protein-calorie malnutrition; I50.32 Chronic diastolic (congestive) heart failure; I13.0 Hypertensive heart and chronic kidney disease with heart failure and stage 1 through stage 4 chronic kidney disease, or unspecified chronic kidney disease; N30.01 Acute cystitis with hematuria; Z68.1 Body mass index [BMI] 19.9 or less, adult; B96.4 Proteus (mirabilis) (morganii) as the cause of diseases classified elsewhere; E86.0 Dehydration; E83.41 Hypermagnesemia; R74.8 Abnormal levels of other serum enzymes; Z66 Do not resuscitate; Z51.5 Encounter for palliative care; R73.9 Hyperglycemia, unspecified; R73.03 Prediabetes; I25.10 Atherosclerotic heart disease of native coronary artery without angina pectoris; N18.3 Chronic kidney disease, stage 3 (moderate); E78.5 Hyperlipidemia, unspecified; I73.9 Peripheral vascular disease, unspecified; F32.9 Major depressive disorder, single episode, unspecified; K21.9 Gastro-esophageal reflux disease without esophagitis; J44.9 Chronic obstructive pulmonary disease, unspecified; K57.30 Diverticulosis of large intestine without perforation or abscess without bleeding; I71.4 Abdominal aortic aneurysm, without rupture; K59.00 Constipation, unspecified; F03.90 Unspecified dementia, unspecified severity, without behavioral disturbance, psychotic disturbance, mood disturbance, and anxiety; Z91.041 Radiographic dye allergy status; Z88.8 Allergy status to other drugs, medicaments and biological substances; Z91.048 Other nonmedicinal substance allergy status; Z79.899 Other long term (current) drug therapy; Z78.9 Other specified health status; Z79.82 Long term (current) use of aspirin; Z90.710 Acquired absence of both cervix and uterus; Z90.49 Acquired absence of other specified parts of digestive tract; Z82.49 Family history of ischemic heart disease and other diseases of the circulatory system; Z95.820 Peripheral vascular angioplasty status with implants and grafts; Z86.73 Personal history of transient ischemic attack (TIA), and cerebral infarction without residual deficits